=== PATIENT | male | born 1965 | race Caucasian/White ===

== ENCOUNTER 2020-09-11 07:29 | Emergency (ER) | payer MEDICARE, OTHER ==
[~2020-09-11] VITALS: Ht 172.7 cm; Wt 85.0 kg
[~2020-09-11 07:29] MED LIST: DIVA500T51 PO; DOCU-150 PO; FURO40TA5 PO; GABA-532 PO; HALO5TAB PO; KEPP500 PO; LACT10SO MT; LIDO700A30 TOP; LOSA25TA3 PO; METO-539 PO; MULT-1116 MT; OLAN10TA19 PO; OMEP40CA12 PO; PHEN100C4 PO; SENN-3 PO; SERT50TA12 PO; SULF1TAB48 MT; TOPUD PO; TRAM50TA3 PO; WARF-53 PO; WARF3TAB58 PO
[2020-09-11] MEDS ORDERED: TETANUS, DIPHTHERIA, PERTUSSIS VAC/PF 0.5ML (>7YR OLD) IM ONE (08:15)
[2020-09-11] MEDS ORDERED: IBUPROFEN 600MG TABLET PO ONE (08:15)
[2020-09-11 08:29] LABS: BASOPHILS % 0.4 % (0.0-2.0); HEMATOCRIT. 37.4 % (42.0-52.0); HEMOGLOBIN. 12.2 g/dL (14.0-18.0); LYMPHOCYTES % 13.1 % (20.0-50.0); MEAN CORPUSCULAR HEMOGLOBIN 26.7 pg (28.0-32.0); MEAN CORPUSCULAR VOLUME 81.8 fL (80.0-94.0); MEAN PLATELET VOLUME 9.2 fl (7.4-10.4); MONOCYTES % 9.6 % (2.0-8.0); NEUTROPHILS % 76.9 % (40.0-76.0); PLATELET 276 x1000/uL (130-400); RED BLOOD CELL COUNT 4.57 mill/uL (4.7-6.1)
[2020-09-11 08:40] LABS: CHLORIDE 107 mEq/L (98-107)
[2020-09-11 08:44] LABS: ETHANOL BLOOD < 10 mg/dL
[2020-09-11] MEDS ORDERED: LIDOCAINE HCL 1% 20ML VIAL (Pyxis) INJ INFIL ONE (09:15)
[2020-09-11] MEDS ORDERED: LORAZEPAM 2MG/ML CPJ IV ONE ×2 (09:15→17:15)
[2020-09-11] MEDS ORDERED: LEVETIRACETAM 500MG PREMIX 100 ML IV ONE (09:15)
[2020-09-11] MEDS ORDERED: CEFTRIAXONE SODIUM 1 G/VIAL IM ONE (09:15)
[2020-09-11 12:01] LABS: CLARITY URINE CLEAR (CLEAR); COLOR URINE YELLOW (YELLOW); KETONES URINE TRACE (NEGATIVE); LEUKOCYTE ESTERASE URINE NEGATIVE (NEGATIVE); NITRITE URINE NEGATIVE (NEGATIVE); OCCULT BLOOD URINE NEGATIVE (NEGATIVE); PH URINE 7.5 (4.5-8.0); PROTEIN URINE TRACE (NEGATIVE); SPECIFIC GRAVITY URINE 1.019 (1.005-1.030)
[2020-09-11 12:30] LABS: *AMPHETAMINES SCREEN URINE NEGATIVE (NEGATIVE); *BARBITURATES SCREEN URINE NEGATIVE (NEGATIVE); *BENZODIAZEPINES SCREEN URINE NEGATIVE (NEGATIVE); *COCAINE SCREEN URINE NEGATIVE (NEGATIVE); METHADONE URINE SCREEN NEGATIVE (NEGATIVE); OPIATES URINE SCREEN NEGATIVE (NEGATIVE)
[2020-09-11 12:32] LABS: PHENCYCLIDINE URINE SCREEN NEGATIVE (NEGATIVE)
[2020-09-11 12:33] LABS: CANNABINOID URINE SCREEN NEGATIVE (NEGATIVE)
[2020-09-11 17:50] VITALS: BP 152/85
== END 2020-09-11 17:15 | disposition home or self-care (01) ==
LOC: ER 07:43
DX: F98.9 Unspecified behavioral and emotional disorders with onset usually occurring in childhood and adolescence (principal); Z79.899 Other long term (current) drug therapy; Z86.59 Personal history of other mental and behavioral disorders; Z98.890 Other specified postprocedural states
CPT/HCPCS: 36415; 70450; 73130; 80053; 80305; 80320; 81003; 85025; 90471; 90715; 93005; 96365; 96372; 96375; 96376; 99285; J0696; J1953; J2060; G0480

== ENCOUNTER 2020-09-11 19:30 | Emergency (ER) | payer MEDICARE, OTHER ==
[~2020-09-11] VITALS: Ht 177.8 cm; Wt 90.0 kg
[2020-09-11] MEDS ORDERED: HALOPERIDOL LACTATE 5MG/ML VIAL IM STA (19:52)
[2020-09-11] MEDS ORDERED: LORAZEPAM 2MG/ML CPJ IM STA (19:52)
[2020-09-11] MEDS ORDERED: DIPHENHYDRAMINE 50MG/ML VIAL IM ONE (20:00)
[2020-09-11 21:12] LABS: BASOPHILS % 0.3 % (0.0-2.0); HEMATOCRIT. 36.9 % (42.0-52.0); HEMOGLOBIN. 12.2 g/dL (14.0-18.0); LYMPHOCYTES % 18.6 % (20.0-50.0); MEAN CORPUSCULAR VOLUME 81.6 fL (80.0-94.0); MEAN PLATELET VOLUME 8.7 fl (7.4-10.4); MONOCYTES % 12.3 % (2.0-8.0); NEUTROPHILS % 68.8 % (40.0-76.0); PLATELET 303 x1000/uL (130-400); RED BLOOD CELL COUNT 4.52 mill/uL (4.7-6.1); RED CELL DISTRIBUTION WIDTH 17.8 % (11.6-14.6)
[2020-09-11 21:16] LABS: CHLORIDE 109 mEq/L (98-107)
[2020-09-11 21:21] LABS: ETHANOL BLOOD < 10 mg/dL
[2020-09-12] MEDS ORDERED: LORAZEPAM 2MG/ML CPJ IM ONE ×4 (03:00→10:00)
[2020-09-12] MEDS ORDERED: HALOPERIDOL LACTATE 5MG/ML VIAL IM ONE ×3 (03:00→10:00)
[2020-09-12] MEDS ORDERED: NITROGLYCERIN 0.4MG TABLET SL SL PRN (03:15)
[2020-09-12] MEDS ORDERED: ASPIRIN 81MG TABLET PO ONE (03:15)
[2020-09-12] MEDS ORDERED: OLANZAPINE 10 MG/VIAL IM ONE (06:30)
[2020-09-12] MEDS ORDERED: IBUPROFEN 600MG TABLET PO ONE (09:15)
[2020-09-12] MEDS ORDERED: DIPHENHYDRAMINE 50MG/ML VIAL IM ONE (10:00)
[2020-09-12] MEDS: SERTRALINE HCL 50MG TABLET PO SCH (19:13)
[2020-09-12] MEDS: OLANZAPINE 10MG TABLET PO SCH (19:13)
[2020-09-12] MEDS: PHENYTOIN SODIUM EXTENDED 100MG CAPSULE PO SCH (21:26)
[2020-09-12] MEDS: OMEPRAZOLE 20MG CAPSULE EXTENDED RELEASE PO SCH (21:26)
[2020-09-12] MEDS: LEVETIRACETAM 500MG TABLET PO SCH (21:26)
[2020-09-13] MEDS: OLANZAPINE 10MG TABLET PO SCH ×2 (09:12→19:00)
[2020-09-13] MEDS: LEVETIRACETAM 500MG TABLET PO SCH ×2 (09:12→21:00)
[2020-09-13] MEDS: OMEPRAZOLE 20MG CAPSULE EXTENDED RELEASE PO SCH ×2 (09:12→21:00)
[2020-09-13] MEDS: SERTRALINE HCL 50MG TABLET PO SCH (09:12)
[2020-09-13] MEDS: PHENYTOIN SODIUM EXTENDED 100MG CAPSULE PO SCH (21:00)
[2020-09-14] MEDS: OLANZAPINE 10MG TABLET PO SCH (08:40)
[2020-09-14] MEDS: OMEPRAZOLE 20MG CAPSULE EXTENDED RELEASE PO SCH (08:40)
[2020-09-14] MEDS: LEVETIRACETAM 500MG TABLET PO SCH (08:40)
[2020-09-14] MEDS: SERTRALINE HCL 50MG TABLET PO SCH (09:00)
[2020-09-14 11:29] VITALS: BP 145/75
== END 2020-09-14 13:09 | disposition home or self-care (01) ==
LOC: ER 19:30
DX: F20.9 Schizophrenia, unspecified (principal); R45.851 Suicidal ideations; R45.850 Homicidal ideations; G40.909 Epilepsy, unspecified, not intractable, without status epilepticus; R07.89 Other chest pain; R45.1 Restlessness and agitation; I99.9 Unspecified disorder of circulatory system; F32.9 Major depressive disorder, single episode, unspecified; Z03.818 Encounter for observation for suspected exposure to other biological agents ruled out; Z86.718 Personal history of other venous thrombosis and embolism; Z98.890 Other specified postprocedural states; Z79.899 Other long term (current) drug therapy; Z75.1 Person awaiting admission to adequate facility elsewhere
CPT/HCPCS: 36415; 70450; 71045; 73130; 80053; 80305; 80307; 80320; 80329; 81003; 82140; 85025; 90471; 90715; 93005; 96365; 96372; 96375; 96376; 99285; C9803; J0696; J1200; J1630; J1953; J2060; J3490; U0003; G0480